=== PATIENT | female | born 2000 | race Hispanic/Latino ===

== ENCOUNTER → 2020-01-01 10:51 | Outpatient (CLI) | payer OTHER, SELFPAY ==
--- NOTE | ~2020-01-01 | US_ITS ---
EXAMINATION: US OB follow up DATE: 01/01/2020 11:22 INDICATION: Small for gestational age. Assess amniotic fluid index and estimate weight during t hird trimester of . TECHNIQUE: Real-time ultrasound of the pelvis was performed. The interpreting radiologist was not pre sent for the study. COMPARISON: 09/11/2019 FINDINGS: There is a single living fetus in vertex presentation. The placenta is posterior and not low-lying. heart rate is 140 beats per minute (bpm). The amniotic fluid index is 14.8 cm, which is normal (5th%-95%: 7.9-24.9 cm at 35 weeks estimated gestational age). The following biometric data were obtained: BPD: 8.6 cm -> 34 weeks 4 days Head circumference: 31.9 cm -> 35 weeks 6 days Abdominal circumference: 30.8 cm -> 34 weeks 5 days Femur length: 6.9 cm -> 35 weeks 3 days These measurements are concordant. Head circumference to abdominal circumference ratio: 1.03 (normal range 0.93-1.11). Estimated weight: 2582 g (+/-) 387 g. or 5 lbs. 11 oz. (+/-) 14 oz. IMPRESSION: 1. Single living fetus in vertex presentation with heart rate of 140 bpm. 2. Normal amniotic fluid index of 14.8 cm. 3. Estimated weight is 52nd percentile by Hadlock criteria when 02/06/2020 is used as the estimat ed date of delivery (IGLESIA). Please correlate with clinical information or earlier ultrasounds for most accurate IGLESIA. Reviewed, dictated and finalized at location A. HER AND CHARGER IMPRESSION: 1. Single living fetus in vertex presentation with heart rate of 140 bpm. 2. Normal amniotic fluid index of 14.8 cm. 3. Estimated weight is 52nd percentile by Hadlock criteria when 02/06/2020 is used as the estimated date of delivery (IGLESIA). Please correlate with clinical information or earlier ultrasounds for most accurate IGLESIA.
== END ==
PROVIDERS: PCP Family Medicine; Visit Provider Obstetrics & Gynecology
DX: O36.5930 Maternal care for other known or suspected poor fetal growth, third trimester, not applicable or unspecified (principal); Z3A.00 Weeks of gestation of pregnancy not specified
CPT/HCPCS: 76816

== ENCOUNTER 2020-01-02 19:08 | Emergency (ER) | payer OTHER, SELFPAY ==
[2020-01-02 19:54] VITALS: BP 123/84; PULSE 95; RESP 20; TEMP 36.4; O2SAT 99
[2020-01-02 20:12] LABS: Basophils Percent Auto 0.3 % (0.2-1.2); Eosinophils Absolute Auto 0.1 K/mm3 (0-0.3); Immature Granulocyte Absolute 0.03 K/mm3 (0.00-0.031); Immature Granulocyte Percent A 0.3 % (0-0.5); Lymphocytes Absolute Auto 1.91 K/mm3 (0.9-3.2); Lymphocytes Percent Auto 18.8 % (18.3-44.2); Mean Corpuscular HGB Conc 33.3 g/dl (32-36); Mean Corpuscular Volume 92.9 fl (80-100); Mean Platelet Volume 11.6 fl (7.4-10.4); Monocytes Absolute Auto 0.8 K/mm3 (0.1-0.6); Monocytes Percent Auto 7.4 % (2.6-8.5); Neutrophils Absolute Auto 7.3 K/mm3 (1.3-6.7); Neutrophils Percent Auto 72.2 % (45.5-73.1); Platelet Count Result 212 k/mm3 (150-375); Red Cell Distribution Width 13.6 % (11.5-14.5); White Blood Count 10.1 K/mm3 (4.5-10.0)
[2020-01-02 20:20] LABS: Add Urine Microscopic? YES; Appearance Urine Clear (Clear); Bacteria Urine Trace /hpf; Bilirubin Urine Negative (Negative); Blood Urine Negative (Negative); Calcium Oxalate Crystals Urine Present /hpf; Color Urine Amber (Yellow); Glucose Urine UA Negative (Negative); Ketones Urine 1+ mg/dL (Negative); Leukocyte Esterase Ur Negative LEU/UL (Negative); Mucus Urine Heavy /lpf; Nitrate Urine Negative (Negative); Protein Urine 1+ mg/dL (Negative); Specific Grav Ur 1.028 (1.001-1.035); Squamous Epithelial Cell Urine Occasional /hpf (Few)
[2020-01-02 20:23] LABS: Alanine Aminotransferase 20 U/L (4-35); Albumin Level 4.1 g/dL (3.5-5.1); Alkaline Phosphatase 143 U/L (38-126); Aspartate Amino Transferase 22 U/L (14-36); Bilirubin,Total 0.8 mg/dL (0.2-1.3); Blood Urea Nitrogen 9 mg/dL (7-17); Calcium 9.4 mg/dL (8.4-10.2); Carbon Dioxide 26 mmol/L (22-30); Chloride 98 mmol/L (98-107); Estimated CRCL calculation 149 ml/min; Estimated Glomerular Filt Rate > 60; Glucose 85 mg/dL (65-105); Lipase 37 U/L (23-300); Potassium 3.7 mmol/L (3.4-5.0); Sodium 137 mmol/L (137-145)
--- NOTE | 2020-01-02 20:48 | ED.WEAKNESS ---
HPI - Weakness General Chief complaint: Weakness Stated complaint: 35 wks preg, weak, nausea Time Seen by Provider: 01/02/20 20:47 Source: patient Mode of arrival: ambulatory Limitations: no limitations History of Present Illness HPI Narrative: A 19 y/o female that is 35 weeks , presents to the ED, with c/o generalized weakness and decreased appetite x 4 days. She notes that she tries to eat, but is not hungry. Pt notes having ABD pain at work yesterday when she was walking around, but it subsided. She notes having rhinorrhea, but denies having any pain, N/V/D, fever, cough, congestion, vaginal bleeding, abnormal vaginal discharge, or heartburn. Pt notes her OBGYN is Dr. Berumen and her only medications are vitamins. She denies any significant PMHx and reports having NKA. Complaint: generalized weakness Onset (ago): day(s) (4) Duration: constant Context: other (35 weeks ) Associated symptoms: loss of appetite and other (rhinorrhea) Related Data Home Medications Medication Instructions Recorded Confirmed Daily 01/02/20 Allergies Allergy/AdvReac Type Severity Reaction Status Date / Time No Known Allergies Allergy Unknown Verified 01/02/20 20:00 Review of Systems Review of Systems: All systems reviewed & are unremarkable except as noted in HPI and below Constitutional: Constitutional: Denies fever(s), Reports poor appetite and Reports weakness Respiratory: Respiratory: Denies chest congestion, Denies cough and Reports other (rhinorrhea) Gastrointestinal: Gastrointestinal: Denies heartburn, Denies diarrhea, Denies nausea and Denies vomiting Genitourinary: Genitourinary: Denies abnormal vaginal bleeding and Denies vaginal discharge PMFSH Past Medical History Medical History (Updated 01/02/20 @ 23:10 by Andrey Gutierrez MD) No significant past medical history Surgical History Surgical History (Updated 01/02/20 @ 21:35 by RIP Herring) No significant past surgical history Family History Family History (Updated 02/03/17 @ 09:19 by DOCTOR UNKNOWN) Other Asthma Depression Diabetes mellitus Family history of alcoholism Family history of cardiovascular disease Family history of chronic obstructive pulmonary disease Family history of congestive heart failure Family history of malignant neoplasm Family history of mental disorder Family history of obesity Hypertension Social History Social History Smoking status: Never smoker Alcohol intake: current Exam Const: General: healthy appearing, no acute distress and alert Orientation/consciousness: patient oriented x3 HENMT: Head: normal to inspection Resp: Effort & Inspection: normal respiratory effort Auscultation: clear to auscultation bilaterally Cardio: Rate: regular rate Rhythm: regular rhythm GI: GI Palp: No Tenderness to palpation present (GI) Auscultation: normal bowel sounds Other: Gravid Skin: General skin exam: normal color Neuro: General: patient oriented x3 and moves all extremities Speech: normal speech Course Vital Signs Vital signs: Vital Signs Temperature 36.4 C 01/02/20 19:54 Pulse Rate 95 01/02/20 19:54 Respiratory Rate 20 01/02/20 19:54 Blood Pressure 123/84 01/02/20 19:54 Pulse Oximetry 99 01/02/20 19:54 Temperature 36.4 C 01/02/20 19:54 Pulse Rate 90 01/02/20 21:52 Respiratory Rate 20 01/02/20 21:52 Blood Pressure 126/92 H 01/02/20 21:52 Pulse Oximetry 99 01/02/20 21:52 MDM - Weakness Lab Data Result diagrams: 01/02/20 20:02 01/02/20 20:02 Labs: Lab Results 01/02/20 01/02/20 01/02/20 Range/Units 20:02 20:02 20:10 WBC 10.1 H (4.5-10.0) K/mm3 RBC 4.20 (4.2-5.4) M/mm3 Hgb 13.0 (12.0-15.0) g/dL Hct 39.0 (37.0-47.0) % MCV 92.9 (80-100) fl MCH 31.0 (26-34) pg MCHC 33.3 (32-36) g/
[2020-01-02 21:45] VITALS: BP 102/81; PULSE 91
[2020-01-02 21:46] VITALS: BP 131/92; PULSE 90
[2020-01-02 21:47] VITALS: BP 126/92; PULSE 90
[2020-01-02 21:52] VITALS: BP 126/92; PULSE 90; RESP 20; O2SAT 99
[2020-01-02] MEDS: DEXTROSE 5%/0.45% SOD CHL 1,000 ML 1000 ML IV CONT (21:56)
[2020-01-02] MEDS: METOCLOPRAMIDE HCL INJ 10 MG/2 ML VIAL IV PUSH (21:56)
--- NOTE | 2020-01-02 22:02 | PC.NURSE ---
Patient tells this nurse she is now having jose angel cagle or contractions, I'm not sure to be honest. I just want to let you know. This nurse informs EDP .
[2020-01-03 00:45] VITALS: BP 114/82; PULSE 92; RESP 20; O2SAT 99
== END 2020-01-03 00:47 | disposition home or self-care (01) ==
PROVIDERS: Emergency Provider Emergency Medicine; PCP Family Medicine
DX: O21.2 Late vomiting of pregnancy (principal); Z3A.35 35 weeks gestation of pregnancy
CPT/HCPCS: 36415; 80053; 81001; 83690; 85025; 96361; 96374; 99284; J2765

== ENCOUNTER 2020-01-23 11:04 | Outpatient (CLI) | payer OTHER, SELFPAY ==
--- NOTE | 2020-01-23 11:46 | PC.NURSE ---
Dr. Berumen returned page and informed of pt's c/o wetness in underwear on and off since Tuesday. ROM plus was negative. NST is reactive. Pt having some mild contractions she doesn't even feel. SVE is closed, thick, and -2 station. Pt has appointment in office later this week. OK to discharge to home.
[2020-01-23 11:58] VITALS: BP 126/79; PULSE 100
== END 2020-01-23 12:00 | disposition home or self-care (01) ==
PROVIDERS: PCP Family Medicine; Visit Provider Obstetrics & Gynecology
DX: O13.9 Gestational [pregnancy-induced] hypertension without significant proteinuria, unspecified trimester (principal)
CPT/HCPCS: 59025; 84112

== ENCOUNTER 2020-01-30 00:01 | Inpatient (IN) | payer OTHER, SELFPAY ==
[2020-01-10 15:36] VITALS: BMI 25.7
[2020-01-30] VITALS (114 sets, daily range): BP systolic 78–160; BP diastolic 44–128; PULSE 66–230; RESP 16; TEMP 36.1–36.8; O2SAT 93–100; BMI 25.7
[2020-01-30] MEDS: DINOPROSTONE 10 MG VAG INSERT VAGINAL (00:58)
[2020-01-30 01:06] LABS: Basophils Percent Auto 0.4 % (0.2-1.2); Eosinophils Absolute Auto 0.1 K/mm3 (0-0.3); Eosinophils Percent Auto 1.4 % (0-4.4); Hematocrit 39.5 % (37.0-47.0); Hemoglobin 13.1 g/dL (12.0-15.0); Immature Granulocyte Absolute 0.04 K/mm3 (0.00-0.031); Immature Granulocyte Percent A 0.4 % (0-0.5); Lymphocytes Absolute Auto 2.07 K/mm3 (0.9-3.2); Mean Corpuscular HGB Conc 33.2 g/dl (32-36); Mean Corpuscular Hemoglobin 29.9 pg (26-34); Mean Corpuscular Volume 90.2 fl (80-100); Mean Platelet Volume 12.8 fl (7.4-10.4); Monocytes Absolute Auto 0.6 K/mm3 (0.1-0.6); Monocytes Percent Auto 6.8 % (2.6-8.5); Neutrophils Absolute Auto 6.5 K/mm3 (1.3-6.7); Platelet Count Result 197 k/mm3 (150-375); Red Blood Count 4.38 M/mm3 (4.2-5.4); Red Cell Distribution Width 13.3 % (11.5-14.5); White Blood Count 9.4 K/mm3 (4.5-10.0)
--- NOTE | 2020-01-30 01:13 | LDADM ---
This patient, Philly Rojas, was admitted to Labor/Delivery/Recovery 108 on 01/30/20 at 00:01. Plans for labor, pain management and were discussed with patient. Patient/family oriented to hospital policies and general routines including ID bracelet, bed and alarms, visiting hours, pain management, procedures, bathroom and other care routines, personal items, smoking policy, room service/diet and guest tray routines, security routines, and visiting hours. Patient/Family are encouraged to report perceived risks to care and to ask questions if they do not understand what they are told or what they should do. See OBIX for further documentation.
[2020-01-30 07:35] LABS: Rapid Plasma Reagin Non-Reactive (NonReactive)
--- NOTE | 2020-01-30 08:04 | WPDOBADMIT ---
Obstetrics - Admit Note Admission Note: Arom clear fluid /-2 vertex record reviewed. No pertinent additions to the history and/or any subsequent changes in the physical findings that are not consistent with the expected course of the were found. Additions to the history and/or subsequent changes in the physical findings follow. None.
[2020-01-30] MEDS: OXYTOCIN 30 UNITS/NS 500 ML 30 UNITS/500 ML BAG 999 UNITS IV CONT (08:43)
[2020-01-30] MEDS: LACTATED RINGERS 1,000 ML 125 ML IV CONT ×2 (08:44→11:26)
--- NOTE | 2020-01-30 11:19 | WPDANESEPPF ---
Anes - Initial Pre Proc Eval Procedure: Labor Epidural Date/Time: 01/30/20 11:19 Surgeon: Rell Berumen MD Pre Op Diagnosis: induction of labor Patient Data Age: 19 Gender: F Height: 1.6 m Weight: 66 kg Last Vital Signs Temp 36.6 C 01/30/20 10:14 Pulse 98 01/30/20 10:45 BP 121/86 01/30/20 10:45 Allergies Allergy/AdvReac Type Severity Reaction Status Date / Time No Known Allergies Allergy Unknown Verified 01/02/20 20:00 Home Medications Medication Instructions Recorded Confirmed Type PNV cmb#95-ferrous fumarate-FA 1 tablet PO DAILY 01/02/20 01/30/20 History [] Laboratory Tests 01/30/20 01/30/20 01/30/20 00:52 00:52 00:52 WBC 9.4 K/mm3 K/mm3 (4.5-10.0) RBC 4.38 M/mm3 M/mm3 (4.2-5.4) Hgb 13.1 g/dL g/dL (12.0-15.0) Hct 39.5 % % (37.0-47.0) MCV 90.2 fl fl (80-100) MCH 29.9 pg pg (26-34) MCHC 33.2 g/dl g/dl (32-36) RDW 13.3 % % (11.5-14.5) Plt Count 197 k/mm3 k/mm3 (150-375) MPV 12.8 fl H fl (7.4-10.4) Immature Gran % (Auto) 0.4 % % (0-0.5) Neut % (Auto) 69.0 % % (45.5-73.1) Lymph % (Auto) 22.0 % % (18.3-44.2) Price % (Auto) 6.8 % % (2.6-8.5) Eos % (Auto) 1.4 % % (0-4.4) Baso % (Auto) 0.4 % % (0.2-1.2) Lymph # (Auto) 2.07 K/mm3 K/mm3 (0.9-3.2) Price # (Auto) 0.6 K/mm3 K/mm3 (0.1-0.6) Eos # (Auto) 0.1 K/mm3 K/mm3 (0-0.3) Baso # (Auto) 0.0 K/mm3 K/mm3 (0.0-0.1) Abs Immat Gran (auto) 0.04 K/mm3 H K/mm3 (0.00-0.031) Absolute Neuts (auto) 6.5 K/mm3 K/mm3 (1.3-6.7) Absolute Nucleated RBC 0.0 K/mm3 K/mm3 (0.0-0.012) Nucleated RBC % 0.0 % % (0.0-0.2) RPR Non-reactive (NonReactive) Blood Type O Positive Antibody Screen Negative Patient hx anesthesia problems: none Family hx anesthesia problems: none PMFSH Past Medical History Medical History No significant past medical history Surgical History Surgical History No significant past surgical history Family History Family History Father Diabetes mellitus Other Asthma Depression Family history of alcoholism Family history of cardiovascular disease Family history of chronic obstructive pulmonary disease Family history of congestive heart failure Family history of malignant neoplasm Family history of mental disorder Family history of obesity Hypertension Social History Social History Smoking status: Never smoker Alcohol intake: current Substance use: never Gender identity (if verbalized by the patient): Female Spiritual care concerns: No Anes - Eval Final PreProcedure Day of Procedure 01/30/20 11:19 Patient weight: normal Heart: regular rate and rhythm Lungs: normal air movement Airway: Mallampati scale class II Neurological: alert and oriented ASA classification: II Emergent: no Anesthetic plan: proceed Anesthesia type and monitoring: regional epidural Informed Consent: The patient's anesthetic plan and its attendant risks and benefits were discussed with the patient/family/POA. Questions were solicited and answers provided to the satisfaction of the patient/family/POA.
[2020-01-30] MEDS: ONDANSETRON INJ 4 MG/2 ML VIAL IV PUSH (13:38)
--- NOTE | 2020-01-30 16:00 | PM.OBPRVD ---
OB - Delivery Note Procedure Delivery date: 01/30/20 Procedure: events: Labor Induction Intrapartal events: None Induction method: per pitocin protocol and other (cervidil) Delivery monitor: external FHT, external uterine and internal uterine Route of delivery: Laceration description: Perineal - 2nd Degree Delivery repair: vicryl Estimated blood loss (mL): 300 Anesthesia type: Epidural Disposition: floor Baby Date of : 01/30/20 Time of : 15:41 Weeks of gestation at delivery: 39 Infant gender: Male presentation: vertex position: Right Occiput Anterior Placenta delivery description: Spontaneous cord vessel description: 3 Vessels and Nuchal Cord score one minute: 8 score five minutes: 9
[2020-01-30] MEDS: OXYTOCIN 30 UNITS/NS 500 ML 30 UNITS/500 ML BAG 125 UNITS IV CONT (16:25)
[2020-01-30] MEDS: IBUPROFEN 600 MG TABLET PO (16:25)
[2020-01-30] MEDS: WITCH HAZEL 40 PADS 1 PAD TOPICAL (18:22)
[2020-01-30] MEDS: BENZOCAINE 20% AER SPR (*SP) 56 GM CAN 1 SPRAY TOPICAL (18:22)
[2020-01-31] MEDS: IBUPROFEN 600 MG TABLET PO ×4 (02:04→23:50)
[2020-01-31 05:42] LABS: Hematocrit 32.7 % (37.0-47.0); Hemoglobin 10.6 g/dL (12.0-15.0)
[2020-01-31 07:45] VITALS: BP 114/83; PULSE 78; RESP 16; TEMP 36.9; O2SAT 98
--- NOTE | 2020-01-31 09:24 | P.PNOB_ITS ---
OB - PN: Subj Subjective Date/time seen: 01/31/20 09:24 S: doing well no complaints thinking about adoption OB - PN: Obj Data Labs CBC & Chem 7: 01/31/20 04:42 Labs: Laboratory Results - last 24 hr 01/31/20 04:42 Hgb 10.6 L Hct 32.7 L OB - PN A/P Assessment and Plan (1) (normal spontaneous vaginal delivery): Code(s): O80 - Encounter for full-term uncomplicated delivery Status: Acute Assessment and Plan: patient doing well giving baby up for adoption. Time Spent With Patient Time: Total time spent is greater than 50% in coordination of care (as d ocumented) at patient's floor/unit and/or counseling patient: Exam Narrative: Exam Narrative: ff below umbilicus
--- NOTE | 2020-01-31 09:51 | PC.NURSE ---
Addendum entered by Amadou Levi RN 01/31/20 09:52: Time of note was at 0730 Original Note: PT introductions made and plan of care discussed per post , pain management, daily care activities. PT verbalized understanding of such care. PT requests to not be discharged till is discharged.
[2020-01-31] MEDS: DOCUSATE SODIUM 100 MG CAPSULE PO ×2 (11:10→15:43)
[2020-01-31 11:15] VITALS: PULSE 78; RESP 16; O2SAT 98
[2020-01-31 19:00] VITALS: BP 118/76; PULSE 86; RESP 16; TEMP 36.8
--- NOTE | 2020-01-31 19:05 | PC.NURSE ---
Went to demonstrate and teach circumcision care to adoptive parents. The biological mother and grandmother wanted to received instructions and wanted the baby. Social service was called and she facilitated discussions between adoptive parents and the biological mother and grandmother. Biological mother stated to adoptive couple that she was having doubts about the adoption and wanted baby to stay with her. Final decision had not been made and she wanted them to stay and see baby. The adoptive parents stated they would stay in room 276 but did not want to have baby with them at this time. They left the room tearful. Social service will be returning tomorrow morning and I believe the adoptive parents concrete bucket loader as well.
[2020-02-01] MEDS: WITCH HAZEL 40 PADS 1 PAD TOPICAL (06:52)
[2020-02-01] MEDS: DOCUSATE SODIUM 100 MG CAPSULE PO (06:53)
[2020-02-01 07:00] VITALS: BP 109/75; PULSE 79; RESP 18; TEMP 36.8; O2SAT 99
--- NOTE | 2020-02-01 11:30 | PCCCNOTE ---
SW. Note. Pt. had adoption planned when she initially came in to deliver. Adoptive parents, John and Evi, were present at hospital when baby was born. Adoptive parents were using employee counselor, Ita Gonzalez, from [facility] [employer]. Adoptive parents did not have any documents related to the adoption. I spoke with the employee counselor on Tuesday afternoon. After several phone calls, the employee counselor had a plan to have adoptive parents and mother meet at her office on day of discharge to have teleconference with a county court judge to have appropriate papers completed. On I met with pt. and she was having doubts about her initial adoption decision. I offered to contact an adoption agency to see if a and mother counselor would speak with her and she agreed. She was connected with Samantha from [facility] and they spoke by phone. After several discussions she agreeed to have conversation with the adoptive parents to let them know that she was considering parenting her baby. Adoptive parents were tearful but understanding. Philly wanted to wait until this morning to make a final decision. Adoptive parents were given choice to stay over night last night or go home. They opted to stay and meet with Philly again this morning. Met with pt. this morning and she was very clear in her decision to parent this baby. She met with adoptive parents and myself to let them know her decision. I offered support and resources to adoptive parents before they left the hospital. Pt. was not prepared to take baby home with her. Philly's mother went to [facility] to get the immediate needs. A family member also purchased a bassTinker Squaret for her this morning. A car seat will be provided by the hospital at time of discharge. Philly has made an appointment for next week with a jig hand. Referral was made to Chanel with [employer] to follow up with Philly for medical card for herself and baby. She has also been given info on WIC and will call them for an appointment as well. Philly appears to have a strong support system with her mother and extended family. She and baby will return home today with her mother.
--- NOTE | 2020-02-01 12:19 | PM.OBPNVD ---
OB - PN: Subj Subjective Date/time seen: 02/01/20 12:19 Mom is doing well has decided to keep baby very happy with decision OB - PN: Obj Data Labs CBC & Chem 7: 01/31/20 04:42 OB - PN A/P Assessment and Plan (1) (normal spontaneous vaginal delivery): Code(s): O80 - Encounter for full-term uncomplicated delivery Status: Acute Assessment and Plan: will d/c home f/u in 6 weeks Time Spent With Patient Time: Total time spent is greater than 50% in coordination of care (as documented) at patient's floor/unit and/or counseling patient:
--- NOTE | 2020-02-01 15:22 | PC.NURSE ---
1410 Pt and her mother read through pt's discharge instructions. They were reviewed with her and questions answered. Mother signed her discharge papers. mother home with admission packet including Mother-Baby guide.
[2020-02-04 10:23] VITALS: BP 111/70; PULSE 86; RESP 20; TEMP 36.7
--- NOTE | 2020-02-18 10:15 | PM.OBDSVD ---
DS: Diagnosis Admitting Diagnosis Admitting Diagnosis: Encounter for supervision of normal , unspecified, third trimester Discharge Diagnosis (1) (normal spontaneous vaginal delivery): Code(s): O80 - Encounter for full-term uncomplicated delivery Status: Acute OB - DS: Summary OB Procedures : None OB Procedures Intrapartum: Spontaneous Vag Delivery OB Procedures: : None Peripartum Data Delivery Method: Natural Vaginal Laceration description: Perineal - 2nd Degree complications: none Status at Discharge Functional status at discharge: independent ambulation Overall status at discharge: patient is progressing back to baseline Time Spent with Patient Time attestation: Total time spent providing and/or coordinating discharge services: Discharge Plan Discharge Attending physician on discharge: Rell Berumen Discharging Clinician: Rell Berumen Patient Disposition: Home, Self-Care Activity: may shower and pelvic rest Diet: as tolerated Discharge Instructions: Education: Mom and Baby Guide Given to: Mother Follow-Up: Call your delivering provider's office for an appointment to be seen in: 6 Weeks Mom and baby should come to the [facility] for the follow-up appointment. Appointment Date/Time: February 04, 2020 at 10:00 am What to expect at your follow-up visit: Blood Pressure Check Physical Assessment Call [phone] if you are unable to keep your appointment time. BREAST CARE: 1. Wear a snug supportive bra. 2. For engorgement discomfort: Bottle Feeding: A. May apply ice packs EPISIOTOMY/PERINEAL CARE: 1. Until bleeding stops, use your polina bottle after urinating 2. Change your pad frequently throughout the day 3. You may take sitz baths several times a day (fill your bathtub with warm water and soak for 20 minutes.) Do NOT bathe in the water 4. No tub baths until seen by your physician - You may shower ACTIVITY: 1. Rest as much as possible. 2. Do not exercise or lift anything heavier than your baby (such as laundry or other children.) 3. Avoid stairs or driving as much as possible. 4. Do not put anything into the vagina. No douching, tampons, or sexual activity until seen by physician. NOTIFY PHYSICIAN IF YOU HAVE ANY QUESTIONS OR IF ANY OF THE FOLLOWING SYMPTOMS OCCUR: 1. If your perineum becomes red, swollen, or more painful than what you have experienced in the hospital. 2. If your vaginal bleeding becomes foul smelling. 3. If your vaginal bleeding becomes more heavy than a period or if your bleeding changes from pink to bright red. However, you may pass an occasional walnut-sized clot once or twice for the first week . 4. If you experience a sharp, shooting pain in you calves. 5. If you discover a hard, reddened area on your breast or if you experience flu-like symptoms. 6. Temperature of 100.4 or higher DIET: 1. Eat regular, well-balanced meals. 2. Drink plenty of fluids daily. Patient Instructions: Antibiotic Form Stand Alone Forms: General Discharge Information Follow-up/Referrals: Rell Berumen MD [Physician] - Discharge Medications: Continued PNV cmb#95-ferrous fumarate-FA [] 28 mg iron- 800 mcg Tablet 1 tablet PO DAILY RF: 0 Date of admission: 01/30/20 00:01 Primary Care Provider: Camila Xiong Admitting Provider: Rell Berumen Discharge Date/Time: 02/01/20 14:50 Attending physician on admission: Rell Berumen
== END 2020-02-01 14:50 | disposition home or self-care (01) | DRG 807 ==
LOC: ANHLDR 00:14 → ANHOB2 18:50
PROVIDERS: Admitting Provider Obstetrics & Gynecology; PCP Family Medicine; Visit Provider Obstetrics & Gynecology
DX: O69.81X0 Labor and delivery complicated by cord around neck, without compression, not applicable or unspecified (principal); Z37.0 Single live birth; Z3A.39 39 weeks gestation of pregnancy; O70.1 Second degree perineal laceration during delivery
CPT/HCPCS: 36415; 85014; 85018; 85025; 86592; 86850; 86900; 86901; A9270; J2405; J2590; J2795; J3010; J7120

== ENCOUNTER 2020-02-04 10:43 | Outpatient (CLI) | payer OTHER, SELFPAY ==
--- NOTE | ~2020-02-04 | US_ITS ---
EXAMINATION: US venous doppler [facility] EXAM DATE: 02/04/2020 11:27 INDICATION: Left leg pain. TECHNIQUE: Multiple grayscale, color flow and Doppler images of the left lower extremity deep venous system were obtained and reviewed. There is no prior study for comparison. FINDINGS: The left common femoral, femoral and profunda veins demonstrate normal color flow, respirat ory variation, augmentation and compressibility. Compressibility, color flow confirmed within the le ft popliteal, posterior tibial, peroneal, and greater saphenous veins. IMPRESSION: 1. No left lower extremity deep venous thrombosis. Reviewed, dictated and finalized at location A.
--- NOTE | 2020-02-04 12:25 | PC.NURSE ---
1145- informed of doppler study results, orders received to send pt home and instruct her to use ice and ibuprofen as needed for discomfort in left leg.
== END 2020-02-04 10:44 | disposition home or self-care (01) ==
LOC: ANHOBOP 10:54
PROVIDERS: PCP Family Medicine; Visit Provider Obstetrics & Gynecology Gynecology
DX: M79.669 Pain in unspecified lower leg (principal)
CPT/HCPCS: 93971

== ENCOUNTER 2020-04-18 03:21 | Emergency (ER) | payer OTHER, SELFPAY ==
--- NOTE | ~2020-04-18 | XR_ITS ---
EXAMINATION: XR chest 1V portable DATE: 04/18/2020 03:54 INDICATION: Cough and shortness of breath. TECHNIQUE: A single frontal view of the chest was obtained. COMPARISON: Chest 2 views 07/13/2018, chest CT 07/13/2018 FINDINGS: The chest demonstrates clear lungs without pneumonia, pleural effusion, or pneumothorax. Th e heart size is normal. IMPRESSION: 1. No acute cardiopulmonary disease. Reviewed, dictated and finalized at location A.
--- NOTE | 2020-04-18 03:24 | ED.GENADULT ---
HPI - General Adult General Chief complaint: Shortness of Breath/Dyspnea Stated complaint: covid s/s; cp sob Time Seen by Provider: 04/18/20 03:23 Source: patient Mode of arrival: ambulatory Limitations: no limitations History of Present Illness HPI narrative: Patient is a 19-year-old female who presents for evaluation of cough and shortness of breath. Patient reports 4 days of worsening cough and shortness of breath. No fever or chills, patient has had some myalgias. No nausea or vomiting. Patient reports chest pain over the center of her chest with radiation to her back, pain has been present over four hours. No abdominal pain. No hemoptysis. Patient states that she is worried she may have coronavirus, she was tested at a urgent care yesterday but does not have her results back. Patient was given an inhaler at that visit which has not really improved her symptoms. No calf swelling or leg pain. No history of blood clot. Related Data Home Medications Medication Instructions Recorded Confirmed PNV cmb#95-ferrous fumarate-FA 1 tablet PO DAILY 01/02/20 01/30/20 [] Allergies Allergy/AdvReac Type Severity Reaction Status Date / Time No Known Allergies Allergy Unknown Verified 01/02/20 20:00 Review of Systems Review of Systems: Narrative: CONSTITUTIONAL: Denies fever, chills, or sweats. ENT: Reports earlier rhinorrhea and congestion CARDIOVASCULAR: Reports chest pain and palpitations RESPIRATORY: Reports cough and shortness of breath GASTROINTESTINAL: Denies abdominal pain, nausea, vomiting, or diarrhea. GENITOURINARY: Denies dysuria or hematuria. SKIN: Denies rash or itching. MUSCULOSKELETAL: Denies back pain, joint pain, reports myalgias NEUROLOGIC: Denies headache, numbness, or weakness. [facility] Past Medical History Medical History No significant past medical history (normal spontaneous vaginal delivery) Surgical History Surgical History No significant past surgical history Family History Family History Father Diabetes mellitus Other Asthma Depression Family history of alcoholism Family history of cardiovascular disease Family history of chronic obstructive pulmonary disease Family history of congestive heart failure Family history of malignant neoplasm Family history of mental disorder Family history of obesity Hypertension Social History Social History Smoking status: Never smoker Alcohol intake: current Substance use: never Gender identity (if verbalized by the patient): Female Spiritual care concerns: No Exam Narrative: Exam Narrative: GENERAL: Awake, alert, conversant HEAD: Normocephalic, atraumatic. EYES: PERRLA and EOMI. ENT: Nares clear, no rhinorrhea or epistaxis. Mucous membranes moist. NECK: Supple. CHEST: No respiratory distress, breathing even and non labored HEART: Regular rate, sinus rhythm ABDOMEN:Non distended, non tender EXTREMITIES: Normal range of motion. No edema. SKIN: Warm, dry, no rash. NEURO:No focal deficits. Alert and oriented x3 Course Vital Signs Vital signs: Vital Signs Temperature 37.0 C 04/18/20 03:48 Pulse Rate 100 04/18/20 03:48 Respiratory Rate 18 04/18/20 03:48 Blood Pressure 128/91 H 04/18/20 03:48 Pulse Oximetry 99 04/18/20 03:48 Temperature 37.0 C 04/18/20 03:48 Pulse Rate 85 04/18/20 04:08 Respiratory Rate 18 04/18/20 03:48 Blood Pressure 128/91 H 04/18/20 03:48 Pulse Oximetry 97 04/18/20 04:06 Medical Decision Making MDM Narrative Medical decision making narrative: Patient presented for cough, shortness of breath, chest pain. At the time of assessment, ABCs are intact and vital signs are stable. Patient has no respiratory distress. Patient's EKG and labs
--- NOTE | 2020-04-18 03:30 | ECG_ITS ---
Measurements Intervals [place] Rate: 101 P: 47 OR: 137 QRS: 56 QRSD: 80 T: 5 QT: 331 QTc: 430 Interpretive Statements SINUS TACHYCARDIA NONSPECIFIC T-WAVE ABNORMALITY- ANT/INF LEADS BASELINE ARTIFACT- I, II, III, AVR, AVL, AVF, V1-V4 BORDERLINE ECG Electronically Signed On 04-18-2020 6:55:39 CDT by Mono Madrigal D.O.
[2020-04-18 03:48] VITALS: BP 128/91; PULSE 100; RESP 18; TEMP 37; O2SAT 99
[2020-04-18 04:01] LABS: Prothrombin Time 12.5 Seconds (11.1-14.7)
[2020-04-18 04:02] LABS: Partial Thromboplastin Time 31.8 SECONDS (22.3-36.8)
[2020-04-18] MEDS: ACETAMINOPHEN 500 MG TABLET 1000 MG PO (04:03)
[2020-04-18] MEDS: KETOROLAC 15 MG/ML VIAL (*BKC) IV PUSH (04:04)
[2020-04-18 04:06] VITALS: O2SAT 97
[2020-04-18 04:08] VITALS: PULSE 85
[2020-04-18 04:16] LABS: Carbon Dioxide 25 mmol/L (22-30); Chloride 104 mmol/L (98-107); Potassium 3.9 mmol/L (3.4-5.0); Sodium 137 mmol/L (137-145); Troponin I < 0.012 ng/mL (0.000-0.034)
[2020-04-18 04:17] LABS: Alanine Aminotransferase 32 U/L (4-35); Albumin Level 4.6 g/dL (3.5-5.1); Aspartate Amino Transferase 24 U/L (14-36); Bilirubin,Total 0.6 mg/dL (0.2-1.3); Blood Urea Nitrogen 12 mg/dL (7-17); CRP < 0.5 mg/dL (<1.0); Calcium 9.5 mg/dL (8.4-10.2); Estimated CRCL calculation 128 ml/min; Estimated Glomerular Filt Rate > 60; Glucose 101 mg/dL (65-105)
[2020-04-18 04:18] LABS: Alkaline Phosphatase 85 U/L (38-126); Lactate Dehydrogenase 256 U/L (313-618)
[2020-04-18 05:00] VITALS: BP 115/85; PULSE 88; RESP 13; O2SAT 98
[2020-04-18 05:06] LABS: Basophils Percent Auto 0.5 % (0.2-1.2); Eosinophils Absolute Auto 0.2 K/mm3 (0-0.3); Eosinophils Percent Auto 2.9 % (0-4.4); Hematocrit 39.6 % (37.0-47.0); Hemoglobin 13.5 g/dL (12.0-15.0); Immature Granulocyte Absolute 0.02 K/mm3 (0.00-0.031); Immature Granulocyte Percent A 0.3 % (0-0.5); Lymphocytes Absolute Auto 1.72 K/mm3 (0.9-3.2); Lymphocytes Percent Auto 21.7 % (18.3-44.2); Mean Corpuscular HGB Conc 34.1 g/dl (32-36); Mean Corpuscular Hemoglobin 30.3 pg (26-34); Mean Corpuscular Volume 88.8 fl (80-100); Mean Platelet Volume 10.9 fl (7.4-10.4); Monocytes Absolute Auto 0.4 K/mm3 (0.1-0.6); Monocytes Percent Auto 4.8 % (2.6-8.5); Neutrophils Absolute Auto 5.5 K/mm3 (1.3-6.7); Neutrophils Percent Auto 69.8 % (45.5-73.1); Platelet Count Result 251 k/mm3 (150-375); Red Blood Count 4.46 M/mm3 (4.2-5.4); Red Cell Distribution Width 13.5 % (11.5-14.5); White Blood Count 7.9 K/mm3 (4.5-10.0)
--- NOTE | 2020-04-18 05:35 | PC.NURSE ---
Pt states feeling like she can breath better after getting medication.
[2020-04-18 05:38] VITALS: BP 120/87; PULSE 81; RESP 17; O2SAT 97
== END 2020-04-18 05:20 | disposition home or self-care (01) ==
PROVIDERS: Emergency Provider Emergency Medicine; PCP Family Medicine
DX: J06.9 Acute upper respiratory infection, unspecified (principal); Z20.828 Contact with and (suspected) exposure to other viral communicable diseases; R00.0 Tachycardia, unspecified; R94.31 Abnormal electrocardiogram [ECG] [EKG]
CPT/HCPCS: 36415; 71045; 80053; 81025; 82728; 83615; 84484; 85025; 85380; 85610; 85730; 86140; 93005; 96374; 96375; 99284; A9270; J1100; J1885

== ENCOUNTER 2020-09-09 14:02 | Outpatient (CLI) | payer OTHER, SELFPAY ==
--- NOTE | ~2020-09-09 | CT_ITS ---
EXAMINATION: CT abdomen pelvis wo con DATE: 09/09/2020 15:25 INDICATION: Right lower quadrant abdominal pain. TECHNIQUE: Computed tomography (CT) of the abdomen and pelvis was performed without intravenous contr ast. Automated exposure control and iterative reconstruction technique were employed. The dose-length product was 230.11 mGy-cm. COMPARISON: CT abdomen and pelvis 02/16/19 FINDINGS: The visualized portions of the lung bases are clear without pneumonia or pleural effusion. The heart size is normal. No pericardial effusion. The liver, gallbladder, spleen, pancreas, adrenal glands, and kidneys are normal. There is no urolithiasis. The bladder is distended. There are no dila leonard loops of bowel. The appendix is normal. There are no pathologically enlarged lymph nodes. There i s no free intraperitoneal fluid. The bones are unremarkable. IMPRESSION: 1. No etiology for the patient's symptoms. Reviewed, dictated and finalized at location B. [employer] MANAGER
[2020-09-09 14:25] LABS: Basophils Absolute Auto 0.1 K/mm3 (0.0-0.1); Basophils Percent Auto 0.7 % (0.2-1.2); Eosinophils Absolute Auto 0.3 K/mm3 (0-0.3); Eosinophils Percent Auto 3.1 % (0-4.4); Hematocrit 41.8 % (37.0-47.0); Hemoglobin 14.4 g/dL (12.0-15.0); Immature Granulocyte Absolute 0.03 K/mm3 (0.00-0.031); Immature Granulocyte Percent A 0.3 % (0-0.5); Lymphocytes Absolute Auto 2.72 K/mm3 (0.9-3.2); Lymphocytes Percent Auto 25.6 % (18.3-44.2); Mean Corpuscular HGB Conc 34.4 g/dl (32-36); Mean Corpuscular Hemoglobin 31.4 pg (26-34); Mean Corpuscular Volume 91.1 fl (80-100); Mean Platelet Volume 10.3 fl (7.4-10.4); Monocytes Absolute Auto 0.5 K/mm3 (0.1-0.6); Monocytes Percent Auto 4.8 % (2.6-8.5); Neutrophils Percent Auto 65.5 % (45.5-73.1); Platelet Count Result 355 k/mm3 (150-375); Red Blood Count 4.59 M/mm3 (4.2-5.4); White Blood Count 10.6 K/mm3 (4.5-10.0)
== END 2020-09-09 14:03 | disposition home or self-care (01) ==
PROVIDERS: PCP Family Medicine; Visit Provider Physician Assistant
DX: R10.31 Right lower quadrant pain (principal)
CPT/HCPCS: 36415; 74176; 85025

== ENCOUNTER 2020-10-28 16:53 | Emergency (ER) | payer OTHER, SELFPAY ==
[2020-10-28] VITALS (9 sets, daily range): BP systolic 108–133; BP diastolic 66–90; PULSE 117–160; RESP 18–24; TEMP 36.3–37.2; O2SAT 99–100
--- NOTE | ~2020-10-28 | CT_ITS ---
EXAMINATION: CT abdomen pelvis w con INDICATION: Right-sided abdominal pain TECHNIQUE: Computed tomographic images of the abdomen and pelvis were obtained after the administrati on of 100 cc of Omnipaque 350 intravenous contrast. The dose-length product (DLP) was 264.33 mGy-cm. Automated exposure control and iterative reconstruction technique were employed. COMPARISON: None available FINDINGS: The lung bases are clear. The heart size is normal. The liver, spleen, pancreas, gallbladde r, and adrenal glands are normal. The kidneys are unremarkable. No pathologically enlarged abdominal or pelvic lymph nodes are identified. There is no free intraperitoneal gas or evidence of bowel obstr uction. The appendix is normal. IMPRESSION: 1. No CT correlate for the patient's symptoms. Reviewed, dictated and finalized at location A. PUMPER
--- NOTE | 2020-10-28 17:03 | ECG_ITS ---
Measurements Intervals [place] Rate: 143 P: 22 [place]: 135 QRS: 77 QRSD: 82 T: 11 QT: 327 QTc: 505 Interpretive Statements SINUS TACHYCARDIA BORDERLINE ST-T WAVE ABNORMALITY- ANT/INF LEADS ABNORMAL ECG Electronically Signed On 10-29-2020 13:55:09 OUTER DIAMETER TECHNICIAN by Mono Madrigal D.O.
[2020-10-28 17:17] LABS: Basophils Percent Auto 0.2 % (0.2-1.2); Eosinophils Percent Auto 0.3 % (0-4.4); Hematocrit 43.9 % (37.0-47.0); Hemoglobin 15.3 g/dL (12.0-15.0); Immature Granulocyte Absolute 0.02 K/mm3 (0.00-0.031); Immature Granulocyte Percent A 0.2 % (0-0.5); Lymphocytes Absolute Auto 0.66 K/mm3 (0.9-3.2); Lymphocytes Percent Auto 7.1 % (18.3-44.2); Mean Corpuscular HGB Conc 34.9 g/dl (32-36); Mean Corpuscular Hemoglobin 31.5 pg (26-34); Mean Corpuscular Volume 90.3 fl (80-100); Mean Platelet Volume 10.8 fl (7.4-10.4); Monocytes Absolute Auto 0.6 K/mm3 (0.1-0.6); Monocytes Percent Auto 6.5 % (2.6-8.5); Neutrophils Absolute Auto 7.9 K/mm3 (1.3-6.7); Neutrophils Percent Auto 85.7 % (45.5-73.1); Platelet Count Result 231 k/mm3 (150-375); Red Blood Count 4.86 M/mm3 (4.2-5.4); Red Cell Distribution Width 12.7 % (11.5-14.5); White Blood Count 9.2 K/mm3 (4.5-10.0)
[2020-10-28 17:26] LABS: Add Urine Microscopic? YES; Appearance Urine Clear (Clear); Bilirubin Urine Negative (Negative); Blood Urine Negative (Negative); Color Urine Yellow (Yellow); Glucose Urine UA Negative (Negative); Ketones Urine Negative (Negative); Leukocyte Esterase Ur Negative LEU/UL (Negative); Mucus Urine Few /lpf; Nitrate Urine Negative (Negative); Protein Urine 2+ mg/dL (Negative); RBC Urine 0-2 /hpf (0-2); Specific Grav Ur 1.027 (1.001-1.035); Squamous Epithelial Cell Urine Many /hpf (Few); Urobilinogen Urine Negative mg/dL (<2.0); WBC Urine 0-3 /hpf
[2020-10-28 17:32] LABS: Alanine Aminotransferase 26 U/L (4-35); Albumin Level 4.5 g/dL (3.5-5.1); Alkaline Phosphatase 107 U/L (38-126); Anion Gap 9 mmol/L (8-16); Aspartate Amino Transferase 24 U/L (14-36); Bilirubin,Total 0.7 mg/dL (0.2-1.3); Blood Urea Nitrogen 12 mg/dL (7-17); Calcium 9.1 mg/dL (8.4-10.2); Carbon Dioxide 28 mmol/L (22-30); Chloride 100 mmol/L (98-107); Estimated CRCL calculation 122 ml/min; Estimated Glomerular Filt Rate > 60; Glucose 102 mg/dL (65-105); Lipase 45 U/L (23-300); Potassium 3.3 mmol/L (3.4-5.0); Sodium 137 mmol/L (137-145)
[2020-10-28] MEDS: SODIUM CHLORIDE 0.9% IV 1,000 ML 999 ML IV CONT ×3 (18:13→21:32)
--- NOTE | 2020-10-28 18:38 | ED.GENADULT ---
HPI - General Adult General Chief complaint: Nausea/Vomiting/Diarrhea Stated complaint: n/v/d temp 102 Time Seen by Provider: 10/28/20 17:16 Source: patient History of Present Illness HPI narrative: Patient is a 20 y/o female complaining of diarrhea, vomiting and abdominal pain since yesterday. She states that she had 5-10 episodes of diarrhea and her diarrhea is mostly watery. There is no alleviating or exacerbating factor. She also had fever up to 102 earlier. She has no cough or SOB. Related Data Home Medications Medication Instructions Recorded Confirmed norgestimate 0.25 mg-ethinyl 1 tablet PO DAILY 04/29/20 07/14/20 estradiol 35 mcg tablet Allergies Allergy/AdvReac Type Severity Reaction Status Date / Time No Known Allergies Allergy Unknown Verified 10/28/20 21:33 Review of Systems Constitutional: Constitutional: Denies chills, Reports fever(s), Denies headache(s) and Denies weakness Eyes: Eyes: Denies blurry vision ENT: Denies headache(s) and Denies neck pain Cardiovascular: Cardiovascular: Denies chest pain and Denies dyspnea Respiratory: Respiratory: Denies cough and Denies dyspnea Gastrointestinal: Gastrointestinal: Reports abdominal pain, Reports diarrhea, Reports nausea and Reports vomiting Genitourinary: Genitourinary: Denies hematuria and Denies dysuria Musculoskeletal: Musculoskeletal: Denies back pain and Denies neck pain Neurologic: Denies headache(s) and Denies weakness PMFSH Past Medical History Medical History History of suicide attempt Major depressive disorder, severe (normal spontaneous vaginal delivery) Surgical History Surgical History No significant past surgical history Family History Family History Father Diabetes mellitus Other Asthma Depression Family history of alcoholism Family history of cardiovascular disease Family history of chronic obstructive pulmonary disease Family history of congestive heart failure Family history of malignant neoplasm Family history of mental disorder Family history of obesity Hypertension Social History Social History Social History: Single Smoking status: Never smoker Second hand tobacco smoke exposure: No Alcohol intake: current Substance use: never Substance use type: does not use Gender identity (if verbalized by the patient): Female Spiritual care concerns: No Exam Const: General: no acute distress and well developed Orientation/consciousness: oriented to person, oriented to place, oriented to time and patient oriented x3 HENMT: Head: normocephalic Ears: external ears normal General nose exam: Normal external nose present Eyes: General: appearance normal, both eyes and all related structures Conjunctivae: conjunctivae normal Neck: Neck: normal visual inspection and full ROM Chest: Chest palpation & inspection: normal inspection of the chest and no tenderness Resp: Effort & Inspection: normal respiratory effort Auscultation: clear to auscultation bilaterally Cardio: Rate: tachycardic Rhythm: regular rhythm GI: GI Palp: No abdominal tenderness and Yes Soft to palpation Skin: General skin exam: normal color and turgor normal Neuro: General: oriented to person, oriented to place, oriented to time and patient oriented x3 Cognition (Neuro): normal cognition Extrem: General: normal to inspection, full ROM and no pedal edema Psych: Appearance: grossly normal Mental Status: mental status grossly normal Affect: normal affect Course Consultations Consultation #1: Discussed with Dr. Stokes (hospitalist), who evaluated patient in ED and recommends discharge. Date: 10/28/20 Time: 23:00 Vital Signs Vital signs: Vital Signs Temperature 37.2 C 10/28/20 17:02 Pulse
[2020-10-28] MEDS: POTASSIUM CHLORIDE 20 MEQ TABLET PO (18:43)
[2020-10-28] MEDS: ONDANSETRON INJ 4 MG/2 ML VIAL IV PUSH (19:20)
[2020-10-28] MEDS: LOPERAMIDE HCL 2 MG CAPSULE PO (19:20)
--- NOTE | 2020-10-28 20:20 | PC.NURSE ---
Patient reports minor dizziness while using the bathroom. Orthostatic BP obtained.
--- NOTE | 2020-10-28 21:23 | ECG_ITS ---
Measurements Intervals [place] Rate: 122 P: 27 [place]: 133 QRS: 45 QRSD: 86 T: -6 QT: 312 QTc: 446 Interpretive Statements SINUS TACHYCARDIA EARLY PRECORDIAL R/S TRANSITION BORDERLINE ST-T WAVE ABNORMALITY- ANT/INF LEADS BASELINE ARTIFACT- I, II, AVR, AVL ABNORMAL ECG Electronically Signed On 10-29-2020 14:10:56 PRODUCTION CLOTH CUTTER by Mono Madrigal D.O.
--- NOTE | 2020-10-28 23:28 | PM.IMCN ---
Assessment and Plan Assessment and plan (1) Viral gastroenteritis: Code(s): A08.4 - Viral intestinal infection, unspecified Status: Acute Assessment and Plan: -continue supportive care with p.o. fluids -no alarm signs on lab work or CT abdomen/pelvis (2) Tachycardia: Code(s): R00.0 - Tachycardia, unspecified Status: Acute Assessment and Plan: -likely secondary dehydration -patient received 3 L IV fluid bolus in ED -patient can tolerate p.o., continue p.o. intake -patient will follow-up with PCP in a few days. -patient has no other cardiac history, sinus tachycardia likely secondary to dehydration from gastroenteritis. I discussed with patient risks and benefits of admission versus going home. She is anxious to go home because she wants to be with her baby. She feels that she can tolerate p.o. intake and will like to follow with her PCP in a few days. Patient stable for discharge. Recommendations for discharge with outpatient follow-up PCP. HPI Data of Consult Consult date: 10/28/20 Primary Care Provider: Camila Xiong MD Consult Narrative Narrative: Philly Rojas is a 20 year old female with past medical history IBS and depression presents to ED with nausea vomiting diarrhea. She had 5-10 episodes of watery diarrhea. She has otherwise no sick contacts. She 1st thought was a GI bug. She is worried if it could be COVID because she has a young child at home. She states she does not have any sick contacts or respiratory symptoms. In the ED she was found to be tachycardic heart rate with range 110s-130s after 3 L of fluids. She has been able to tolerate p.o. intake. Potassium was little low at 3.2 otherwise labs are stable. CT abdomen pelvis negative. EKG showed sinus Tachycardia rate 122. I discussed with patient clinically she likes to has viral gastroenteritis with nausea vomiting diarrhea. The fact that she can tolerate p.o. intake is reassuring so she can stay hydrated. Patient would like to go home because of her young child. She states she will follow-up with her PCP in a couple days. Patient agreed to supportive alf. Review of Systems Review of Systems: Narrative: Constitutional: No Fever, No Chills, No Night Sweats, No Fatigue, No Malaise ENT/Mouth: No Hearing Changes, No Ear Pain, No Nasal Congestion, No Sinus Pain, No Hoarseness, No sore throat, No Rhinorrhea, No Swallowing Difficulty Eyes: No Eye Pain, No Redness, No Vision Changes Cardiovascular: No Chest Pain, No Palpitations, No Dyspnea on Exertion, No Orthopnea, No Claudication, No Edema Respiratory: No Cough, No Sputum, No Wheezing, No Shortness of Breath Gastrointestinal: No Constipation, No Heartburn, No Hematochezia, No Melena. Endorses nausea vomiting diarrhea and mild abdominal pain.. Genitourinary: No Dysuria, No Urinary Frequency, No Hematuria, No Urinary Incontinence, No Urgency Musculoskeletal: No Arthralgias, No Myalgias, No Joint Swelling, No Joint Stiffness, No Back Pain Skin: No Skin Lesions, No Pruritis, No Hair Changes Neuro: No Weakness, No Numbness, No Paresthesias, No Loss of Consciousness, No Syncope. Endorses a little lightheadedness. Psych: No Anxiety/Panic, No Depression, No Insomnia Heme: No Bruising, No Bleeding Lymph: No Adenopathy Endocrine: No Polyuria, No Polydipsia, No Temperature Intolerance [facility] Past Medical History Medical History (Updated 10/28/20 @ 23:37 by Massimo Stokes DO) History of suicide attempt Major depressive disorder, severe (normal spontaneous vaginal delivery) depression Surgical History Surgical History No significant past surgical history Family History Family History Father Diabetes mellitus Other Asthma Depression Family history of alcoholism Family history of cardiovascular disease
== END 2020-10-28 23:19 | disposition home or self-care (01) ==
PROVIDERS: Emergency Medicine; Emergency Provider Emergency Medicine; PCP Family Medicine
DX: K52.9 Noninfective gastroenteritis and colitis, unspecified (principal); E86.0 Dehydration; R00.0 Tachycardia, unspecified
CPT/HCPCS: 36415; 74177; 80053; 81001; 81025; 83690; 85025; 93005; 96361; 96374; 99284; A9270; J2405; J7030; Q9967

== ENCOUNTER 2020-10-30 06:54 | Outpatient (NON) | payer OTHER, SELFPAY ==
[2020-10-30 21:48] LABS: SARS-CoV-2 RNA PCR Negative
== END 2020-10-30 06:55 ==
LOC: ANHCOVIDDT 06:59
PROVIDERS: PCP Family Medicine; Visit Provider Family Medicine
DX: R68.89 Other general symptoms and signs (principal); Z20.828 Contact with and (suspected) exposure to other viral communicable diseases
CPT/HCPCS: 87635; C9803; U0003

== ENCOUNTER 2021-02-18 13:04 | Emergency (ER) | payer OTHER, SELFPAY ==
[2021-02-18] VITALS (7 sets, daily range): BP systolic 106–128; BP diastolic 65–85; PULSE 85–97; RESP 16–17; TEMP 36.9; O2SAT 99–100
--- NOTE | 2021-02-18 13:32 | PC.NURSE ---
Pt states she was hospitalized and treated earlier this month for suicidal ideation. States she is not currently experiencing any suicidal thoughts and does not have a plan. EDP Bryn made aware of [place] Assessment results done at triage, states no precautions/intervention necessary at this time.
--- NOTE | 2021-02-18 13:38 | ECG_ITS ---
Measurements Intervals [place] Rate: 95 P: 21 [place]: 143 QRS: 49 QRSD: 85 T: 24 QT: 347 QTc: 437 Interpretive Statements SINUS RHYTHM NORMAL ECG Electronically Signed On 02-18-2021 13:40:16 CDT by oMno Madrigal D.O.
--- NOTE | 2021-02-18 13:45 | ED.GENADULT ---
HPI - General Adult General Chief complaint: Dizziness Stated complaint: dizzy Time Seen by Provider: 02/18/21 13:36 History of Present Illness HPI narrative: Patient is a 20-year-old female who comes to the emergency today complaining of dizziness. Patient reports that for the last 1 week she has been feeling dizzy which she describes as a lightheaded, denies any spinning sensation. Was present intermittently initially with no known exacerbating or alleviating factors. Today it has been fairly constant. When she walked down the stairs earlier today she felt like she was going to pass out which prompted her to seek medical care. Over the last week she is also been feeling nauseous without any vomiting. She has been feeling very fatigued and has been having an intermittent frontal headache. She does admit to sinus congestion but notes this is is a chronic issue and she has been taking antihistamines for this. When asked if she is having chest pain or shortness of breath she answers yes to both but also notes that these are chronic issues for her and her doctors diagnosed her with anxiety. She does note that she is on venlafaxine and this dosage was increased 1 month ago. Denies any fevers. Related Data Home Medications Medication Instructions Recorded Confirmed buspirone 5 mg PO PRN 02/18/21 venlafaxine [Effexor XR] 75 mg PO DAILY 02/18/21 Allergies Allergy/AdvReac Type Severity Reaction Status Date / Time No Known Allergies Allergy Unknown Verified 02/18/21 14:17 Review of Systems Constitutional: Constitutional: Reports as per HPI, Reports fatigue, Denies fever(s), Reports headache(s), Reports malaise, Denies night sweats and Denies weakness ENT: Reports as per HPI Cardiovascular: Cardiovascular: Reports as per HPI, Reports chest pain, Denies edema, Denies leg edema, Denies dyspnea and Denies orthopnea Respiratory: Respiratory: Reports as per HPI, Denies cough and Reports dyspnea Gastrointestinal: Gastrointestinal: Denies abdominal pain, Denies constipation, Denies diarrhea, Denies nausea and Denies vomiting Musculoskeletal: Musculoskeletal: Denies abnormal gait, Denies back pain, Denies numbness and Denies tingling Neurologic: Denies Abnormal speech present, Denies abnormal gait, Reports dizziness, Denies numbness, Denies tingling and Denies weakness Psychiatric: Psychiatric: Denies homicidal ideation and Denies suicidal ideation PMFSH Past Medical History Medical History History of suicide attempt Major depressive disorder, severe (normal spontaneous vaginal delivery) depression Surgical History Surgical History No significant past surgical history Family History Family History Father Diabetes mellitus Other Asthma Depression Family history of alcoholism Family history of cardiovascular disease Family history of chronic obstructive pulmonary disease Family history of congestive heart failure Family history of malignant neoplasm Family history of mental disorder Family history of obesity Hypertension Social History Social History (Updated 11/05/20 @ 14:08 by Jyoti Cerda CMA) Social History: Single Second hand tobacco smoke exposure: No Alcohol intake: current Substance use: never Substance use type: does not use Gender identity (if verbalized by the patient): Female Spiritual care concerns: No Exam Const: General: cooperative, healthy appearing, comfortable, no acute distress, well developed, alert, awake and Physically active Orientation/consciousness: patient oriented x3 Other: Pleasant, appearing, no distress HENMT: Head: normal to inspection, normocephalic and atraumatic Ears: external ears normal General nose exam: Normal external nose present Other: Frontal and
[2021-02-18 13:57] LABS: Basophils Absolute Auto 0.1 K/mm3 (0.0-0.1); Basophils Percent Auto 0.7 % (0.2-1.2); Eosinophils Absolute Auto 0.4 K/mm3 (0-0.3); Eosinophils Percent Auto 4.9 % (0-4.4); Hematocrit 42.7 % (37.0-47.0); Hemoglobin 14.7 g/dL (12.0-15.0); Immature Granulocyte Absolute 0.01 K/mm3 (0.00-0.031); Immature Granulocyte Percent A 0.1 % (0-0.5); Lymphocytes Absolute Auto 2.13 K/mm3 (0.9-3.2); Mean Corpuscular HGB Conc 34.4 g/dl (32-36); Mean Corpuscular Hemoglobin 31.9 pg (26-34); Mean Corpuscular Volume 92.6 fl (80-100); Mean Platelet Volume 10.9 fl (7.4-10.4); Monocytes Absolute Auto 0.5 K/mm3 (0.1-0.6); Monocytes Percent Auto 6.2 % (2.6-8.5); Neutrophils Absolute Auto 4.6 K/mm3 (1.3-6.7); Neutrophils Percent Auto 60.1 % (45.5-73.1); Platelet Count Result 249 k/mm3 (150-375); Red Blood Count 4.61 M/mm3 (4.2-5.4); Red Cell Distribution Width 13.1 % (11.5-14.5); White Blood Count 7.6 K/mm3 (4.5-10.0)
[2021-02-18 14:06] LABS: Alanine Aminotransferase 20 U/L (4-35); Albumin Level 4.6 g/dL (3.5-5.1); Alkaline Phosphatase 87 U/L (38-126); Anion Gap 6 mmol/L (8-16); Aspartate Amino Transferase 23 U/L (14-36); Bilirubin,Total 0.6 mg/dL (0.2-1.3); Blood Urea Nitrogen 11 mg/dL (7-17); Calcium 9.9 mg/dL (8.4-10.2); Carbon Dioxide 30 mmol/L (22-30); Chloride 101 mmol/L (98-107); Estimated CRCL calculation 148 ml/min; Estimated Glomerular Filt Rate > 60; Glucose 101 mg/dL (65-105); Potassium 3.9 mmol/L (3.4-5.0); Sodium 137 mmol/L (137-145)
[2021-02-18] MEDS: LACTATED RINGERS 1,000 ML 999 ML IV CONT (14:07)
[2021-02-18 14:29] LABS: Add Urine Microscopic? NO; Appearance Urine Clear (Clear); Bilirubin Urine Negative (Negative); Blood Urine Negative (Negative); Color Urine Straw (Yellow); Glucose Urine UA Negative (Negative); Ketones Urine Negative (Negative); Leukocyte Esterase Ur Negative LEU/UL (Negative); Nitrate Urine Negative (Negative); Protein Urine Negative (Negative); Specific Grav Ur 1.011 (1.001-1.035); Urobilinogen Urine Negative mg/dL (<2.0)
[2021-02-18] MEDS: KETOROLAC 15 MG/ML VIAL (*BKC) IV PUSH (14:53)
[2021-02-18] MEDS: ACETAMINOPHEN 500 MG TABLET 1000 MG PO (14:54)
[2021-02-18] MEDS: methylPREDNISolone SOD SUCC 125 MG VIAL IV PUSH (14:54)
== END 2021-02-18 17:07 | disposition home or self-care (01) ==
PROVIDERS: Physician Assistant Medical; Emergency Provider Emergency Medicine; PCP Family Medicine
DX: R42 Dizziness and giddiness (principal); R51.9 Headache, unspecified; F41.9 Anxiety disorder, unspecified; F32.9 Major depressive disorder, single episode, unspecified; J32.9 Chronic sinusitis, unspecified
CPT/HCPCS: 36415; 80053; 81003; 81025; 85025; 93005; 96361; 96374; 96375; 99284; A9270; J1885; J2930; J7120